=== PATIENT | female | born 1990 | race Caucasian/White ===

== ENCOUNTER 2023-04-20 19:39 | Emergency (ER) | payer OTHER ==
--- NOTE | 2023-04-20 20:04 | ED Physician Documentation ---
PD HPI ABD PAIN - Stated complaint Stated Complaint: /6 WEEKS PREG - Chief complaint Chief Complaint: Abd Pain - History obtained from History obtained from: Patient - Additional information Additional information: 32-year-old G2, P0 with history of D&C at 10 weeks with prior is 6 weeks and had moderate bleeding tonight associated with cramping. She thinks her blood type is AB- and recalls that she probably did have an Rh shot with her prior D&C. PD PAST MEDICAL HISTORY - Past Medical History Past Medical History: Yes Psych: Anxiety - Present Medications Home Medications: Ambulatory Orders Medication Instructions Recorded Confirmed Sertraline [Zoloft] 50 mg PO DAILY 04/20/23 04/20/23 - Allergies Allergies/Adverse Reactions: Allergies Allergy/AdvReac Type Severity Reaction Status Date / Time No Known Drug Allergies Allergy Verified 04/20/23 19:50 - Social History Does the pt smoke?: No Smoking Status: Never smoker Does the pt drink ETOH?: No Does the pt have substance abuse?: No PD ED PE NORMAL - Vitals Vital signs reviewed: Yes - General General: Alert and oriented X 3, No acute distress - Abdomen Abdomen: Normal bowel sounds, Soft, Non tender - Female Female : Other (I am unable to visualize an intrauterine using bedside ultrasound. There is no free fluid either.) - Neuro Neuro: Alert and oriented X 3 Results - Vitals Vitals: Vital Signs - 24 hr 04/20/23 04/20/23 04/20/23 19:46 19:49 21:49 Temperature 38.1 C H Heart Rate 66 62 Respiratory 16 16 13 Rate Blood Pressure 118/75 102/67 O2 Saturation 99 98 04/20/23 22:22 Temperature Heart Rate 56 L Respiratory 16 Rate Blood Pressure O2 Saturation 97 Oxygen O2 Source Room air - Labs Labs: Laboratory Tests 04/20/23 04/20/23 04/20/23 20:27 20:27 20:27 WBC 8.4 RBC 4.44 Hgb 13.2 Hct 39.4 MCV 88.7 MCH 29.7 MCHC 33.5 RDW 12.3 Plt Count 292 MPV 9.7 Neut # (Auto) 4.9 Lymph # (Auto) 2.4 [place] # (Auto) 0.8 Eos # (Auto) 0.2 Baso # (Auto) 0.1 Absolute Nucleated RBC 0.00 Nucleated RBC % 0.0 Sodium 135 Potassium 4.0 Chloride 103 Carbon Dioxide 26 Anion Gap 6.0 BUN 15 Creatinine 0.6 Estimated GFR (MDRD) 117 Glucose 95 Calcium 9.1 Beta HCG, Quant 99373.7 Urine Color Urine Clarity Urine pH Ur Specific [place] Urine Protein Urine Glucose (UA) Urine Ketones Urine Occult Blood Urine Nitrite Urine Bilirubin Urine Urobilinogen Ur Leukocyte Esterase Urine RBC Urine WBC Ur Squamous Epith Cells Urine Bacteria Ur Microscopic Review Urine Culture Comments Blood Type O NEGATIVE 04/20/23 21:06 WBC RBC Hgb Hct MCV MCH MCHC RDW Plt Count MPV Neut # (Auto) Lymph # (Auto) [place] # (Auto) Eos # (Auto) Baso # (Auto) Absolute Nucleated RBC Nucleated RBC % Sodium Potassium Chloride Carbon Dioxide Anion Gap BUN Creatinine Estimated GFR (MDRD) Glucose Calcium Beta HCG, Quant Urine Color YELLOW Urine Clarity HAZY Urine pH 7.0 Ur Specific [place] 1.010 Urine Protein NEGATIVE Urine Glucose (UA) NEGATIVE Urine Ketones NEGATIVE Urine Occult Blood MODERATE H Urine Nitrite NEGATIVE Urine Bilirubin NEGATIVE Urine Urobilinogen 0.2 (NORMAL) Ur Leukocyte Esterase NEGATIVE Urine RBC 0-5 Urine WBC 0-3 Ur Squamous Epith Cells FEW Squamous Urine Bacteria None Seen Ur Microscopic Review INDICATED Urine Culture Comments NOT INDICATED Blood Type PD Medical Decision Making - ED course ED course: 32-year-old presents with bleeding in early . Formal ultrasound prelim read with 5-week 4-day gestational sac without findings of ectopic. Beta-hCG 11,000. Blood type O-. She was administered RhoGAM and recommended 1 week follow-up ultrasound but nothing too worrisome at this time. Departure - Departure Disposition: 01 Home, Self Care Condition: Good Record reviewed to determine appropriate education?: Yes Instructions: ED Miscarriage Poss Follow-[facility]: [facility] [Provider Group] Comments: For your records your blood type is O-. Results tonight are generally reassuring, the chemist proteins saw a 5-week 4- day gestational sac. This does not prove an intrauterine but is reassuring and there are no findings of tubal or miscarriage. Think would be reasonable for you to have a repeat ultrasound in a week's time and you can call our women[facility] clinic for that. The numbers on this form. Return sooner if worse. Forms: PCP List
[2023-04-20 20:35] LABS: BASOPHILS # (AUTO) 0.1 10^3/uL (0.0-0.1); BASOPHILS % (AUTO) 0.8 %; EOSINOPHILS # (AUTO) 0.2 10^3/uL (0.0-0.7); EOSINOPHILS % (AUTO) 2.5 %; HCT - HEMATOCRIT 39.4 % (37.0-47.0); HGB - HEMOGLOBIN 13.2 g/dL (12.0-16.0); LYMPHOCYTES # (AUTO) 2.4 10^3/uL (1.5-3.5); LYMPHOCYTES % (AUTO) 28.6 %; MEAN CORPUSCULAR HEMOGLOBIN 29.7 pg (27.0-31.0); MEAN CORPUSCULAR HGB CONC 33.5 g/dL (32.0-36.0); MEAN CORPUSCULAR VOLUME 88.7 fL (81.0-99.0); MEAN PLATELET VOLUME 9.7 fL (7.9-10.8); MONOCYTES # (AUTO) 0.8 10^3/uL (0.0-1.0); MONOCYTES % (AUTO) 9.3 %; NEUTROPHILS # (AUTO) 4.9 10^3/uL (1.5-6.6); NEUTROPHILS % (AUTO) 58.6 %; PLT - PLATELET COUNT 292 10^3/uL (130-450); RED BLOOD COUNT 4.44 10^6/uL (4.20-5.40); RED CELL DISTRIBUTION WIDTH 12.3 % (12.0-15.0); WHITE BLOOD COUNT 8.4 x10^3/uL (4.8-10.8)
[2023-04-20 21:06] LABS: CALCIUM 9.1 mg/dL (8.5-10.3); CREATININE 0.6 mg/dL (0.6-1.3)
[2023-04-20 21:21] LABS: BILIRUBIN,URINE NEGATIVE (NEGATIVE); GLUCOSE, URINE (UA) NEGATIVE (NEGATIVE); KETONES,URINE (UA) NEGATIVE (NEGATIVE); LEUKOCYTE ESTERASE, URINE NEGATIVE (NEGATIVE); NITRITE,URINE NEGATIVE (NEGATIVE); OCCULT BLOOD,URINE MODERATE (NEGATIVE); PROTEIN,URINE NEGATIVE (NEGATIVE); UROBILINOGEN,URINE 0.2 (NORMAL) E.U./dL (NORMAL)
[2023-04-20 21:32] LABS: CLARITY,URINE HAZY (CLEAR)
[2023-04-20 21:33] LABS: BACTERIA,URINE None Seen /HPF (None Seen); RBC,URINE 0-5 /HPF (0-5); SQUAMOUS EPITHELIAL CELL,UR FEW Squamous (<= Few); WBC,URINE 0-3 /HPF (0-5)
[2023-04-20] MEDS: RHO(D) IMMUNE GLOBULIN 300 MCG SYRINGE IM STA ×2 (21:40)
--- NOTE | 2023-04-20 21:57 | Ultrasound Report ---
PROCEDURE: OB 1st Trimester w/TV INDICATIONS: preg vb OUTSIDE/PRIOR DATING DATA: Last menstrual period (LMP): 03/10/2023. LMP-based estimated date of delivery (PARVIN): 12/15/2023 assuming viable gestation. First dating scan (date and location): Viable gestation is not yet found.. Estimated date of delivery (PARVIN) from first dating scan: Viable gestation is not yet found.. TECHNIQUE: Real-time scanning was performed of the fetus and maternal pelvic organs, with image documentation. Endovaginal scanning was also performed to better visualize the fetus and maternal ovaries. COMPARISON: None. FINDINGS: A definite intrauterine gestational sac is not seen. A yolk sac or pole is not ident ified within a small saclike structure within the endometrial space.. Embryo: Not seen Heart rate: Not seen bpm. Other: No perigestational fluid collection. Measurement variability in dating: +/- 4 weeks by LMP, +/- 7 days by mean sac diameter (use before 6 weeks gestation if crown-rump length not able to be measured), +/- 5 days by crown-rump length (6-12 weeks gestation). Maternal organs: Ovaries appear within normal limits. IMPRESSION: There is a small saclike structure within the endometrial space that could represent a very early ges tational sac. This cannot be definitively establish given the absence of yolk sac or pole. Foll ow-up ultrasound or correlation with quantitative beta-hCG is recommended. Reviewed by: Shaw Dunn MD on 04/20/2023 9:55 PM PST Approved by: Shaw Dunn MD on 04/20/2023 9:55 PM PST Station ID: [id number]
[2023-04-20 22:00] VITALS: BP 102/67
[2023-04-20 22:28] VITALS: O2SAT 97
== END 2023-04-20 22:15 | disposition home or self-care (01) ==
LOC: ED 19:39
DX: O20.0 Threatened abortion (principal); Z3A.01 Less than 8 weeks gestation of pregnancy
CPT/HCPCS: 36415; 80048; 81001; 81003; 84702; 85025; 86900; 86901; 87086; 96372; 99284